=== PATIENT | female | born 1950 | race Caucasian/White ===

== ENCOUNTER → 2018-02-21 | Outpatient (CLI) | payer BC | END | disposition home or self-care (01) | LOC: KCIC MAMMO 14:52 | DX: Z12.31 Encounter for screening mammogram for malignant neoplasm of breast (principal) | CPT/HCPCS: 77063; 77067 ==

== ENCOUNTER → 2018-03-02 | Outpatient (CLI) | payer BC | END | disposition home or self-care (01) | LOC: KCIC DEXA 08:47 | DX: Z13.820 Encounter for screening for osteoporosis (principal); R29.890 Loss of height; Z78.0 Asymptomatic menopausal state | CPT/HCPCS: 77080 ==

== ENCOUNTER → 2018-03-06 | Outpatient (CLI) | payer BC ==
--- NOTE | 2018-03-06 16:12 | KCIC ---
Pelvic ultrasound, 03/06/2018: HISTORY: Pelvic pain Transabdominal scans were obtained. The uterus is small measuring 6.4 x 4.1 x 3.1 cm. A faint thin central uterine echo complex is noted. The ovaries could not be visualized. No adnexal mass or abnormal pelvic fluid collection is evident. IMPRESSION: 1. Nonvisualization of the ovaries. 2. No significant pelvic abnormality is detected. Electronically signed by: Arias Patel MD (03/06/2018 4:09 PM) [facility]
== END | disposition home or self-care (01) ==
LOC: KCIC US 15:03
PROVIDERS: ATTEND Family Medicine
DX: R10.2 Pelvic and perineal pain (principal)
CPT/HCPCS: 76856

== ENCOUNTER → 2021-12-22 | Outpatient (CLI) | payer BC ==
--- NOTE | 2021-12-22 16:34 | KCIC ---
Bilateral digital screening mammograms with 3-D tomosynthesis: Reason for examination: Routine screening. Comparison is made to previous studies dated 02/21/2018 and 01/26/2015. Bilateral mammograms in CC and oblique projections were obtained with 2-D imaging and 3-D tomosynthes is imaging on a Siemens Inspiration unit and reviewed on the workstation. Interpretation was made wit h the benefit of CAD. The skin and nipples show no abnormalities. No abnormal axillary lymph nodes are seen. The breast par enchyma is heterogeneously dense. (Breast density: Category C.) There are no dominant masses, suspici ous calcifications or architectural distortion. Benign calcifications are present. Impression: No evidence of malignancy. Recommend routine screening. Your patient's mammogram demonstrates that she has dense breast tissue (breast density category C or D), which could hide abnormalities, and if she has other risk factors for breast cancer that have bee n identified, she might benefit from supplemental screening tests that may be suggested by you as her ordering physician. Dense breast tissue, in and of itself, is a relatively common condition. Therefo re, this information is not provided to cause undue concern, but rather to raise your awareness and t o promote discussion with your patient regarding the presence of other risk factors, in addition to d ense breast tissue. Your patient's mammography results will be sent to her. BI-RAD Category 2: Benign. "Our facility is accredited by the [employer] Mammography Program." This patient's information has been entered into a reminder system for the patient to be notified wit h the results of her examination and a target date for the next mammogram. Electronically signed by: Silvia Pollack MD (12/22/2021 4:31 PM) [id number]
--- NOTE | 2021-12-23 08:45 | KCIC ---
DEXA scan 12/22/2021 Clinical History: Postmenopausal female. Risk factors for osteoporosis. Technique: DEXA of the lumbar spine and left hip was performed. FINDINGS: Comparison study is dated 03/02/2018. The bone mineral density of the lumbar spine is 1.280 g/cm2 which corresponds with a T-score of 2.1 . This is within normal limits. The mean bone mineral density is increased since the previous study wh ere it measured 1.212 g/sq cm. The mean bone mineral density of the left hip is 0.873 g/sq cm. This corresponds to a T score of -0.6 . This is within normal limits. The mean bone mineral density [facility] measured 0.876 g/sq cm. By [employer] on Osteoporosis criteria, a T score of 0 to-1 SD is considered to be within normal limits. A T score of -1 to -2.5 SD is considered osteopenia. A T score less than -2.5 SD is conside red osteoporosis Impression: The patient's mean bone mineral densities are within normal limits. The mean bone mineral density of the lumbar spine has increased since the previous study. The mean bone mineral density of the left hip has decreased slightly since the previous study. Electronically signed by: Inocente Blakely MD (12/23/2021 8:42 AM) [id number]
== END ==
LOC: KCIC DEXA 15:00
PROVIDERS: ATTEND Family Medicine
DX: Z12.31 Encounter for screening mammogram for malignant neoplasm of breast (principal); N95.1 Menopausal and female climacteric states
CPT/HCPCS: 77063; 77067; 77080